=== PATIENT | male | born 1970 | race African-American/Black ===

== ENCOUNTER 2024-01-26 06:03 | Emergency (ER) | payer SELFPAY ==
[2024-01-26 06:18] VITALS: BP 124/86; PULSE 92; RESP 18; TEMP 98; BMI 19.8
[2024-01-26] MEDS ORDERED: FAMOTIDINE 20 MG/50 ML IVPB 20 MG/50 ML MG IVPB ONE (07:45)
[2024-01-26] MEDS ORDERED: MAG HYDROX/AL HYDROX/SIMETH 30 ML UNIT-DOSE CUP ONE (07:45)
[2024-01-26] MEDS: LACTATED RINGERS SOLUTION 1000 ML INFUS.BAG IV ONE (08:13)
[2024-01-26] MEDS: MAG HYDROX/AL HYDROX/SIMETH 30 ML UNIT-DOSE CUP PO ONE (08:13)
[2024-01-26] MEDS: FAMOTIDINE 20 MG/50 ML IVPB 20 MG/50 ML MG IVPB ONE (08:13)
[2024-01-26] MEDS ORDERED: ACETAMINOPHEN INJECTION 100 ML IVPB ONE (08:24)
[2024-01-26] MEDS: ACETAMINOPHEN 1000 MG/100 ML BAG IVPB ONE (08:28)
[2024-01-26 08:32] LABS: BASO % 0.5 % (0-2.0); EOS % 2.6 % (0-4.5); HEMATOCRIT 45.7 % (35.4-49); HEMOGLOBIN 15.5 GM/dL (11.7-16.9); LYMPH % 32.9 % (8-40); MCH 30.1 pg (25.7-33.7); MEAN CELL VOLUME 88.7 fl (80-96); MEAN PLT VOLUME 7.7 fl (7.5-11.1); MONO % 10.6 % (3.8-10.2); NEUT % 53.4 % (42.8-82.8); PLATELET COUNT 307 10^3/uL (134-434); RBC 5.15 M/mm3 (4.00-5.60); RDW 12.5 % (11.9-15.9)
[2024-01-26 08:33] LABS: INR 1.06 (0.83-1.09); PROTHROMBIN TIME (PATIENT) 12.3 SEC (9.7-13.0)
[2024-01-26 08:35] LABS: ACTIVATED PTT 33.1 SECONDS (25.2-36.5)
[2024-01-26 08:38] LABS: POTASSIUM 3.9 mmol/L (3.5-5.1)
[2024-01-26 08:39] LABS: CALCIUM 9.5 mg/dL (8.5-10.1)
[2024-01-26 08:40] LABS: ALBUMIN 3.6 g/dl (3.4-5.0); BLOOD UREA NITROGEN 13.6 mg/dL (7-18)
[2024-01-26 08:45] LABS: BILIRUBIN,TOTAL 0.4 mg/dL (0.2-1)
== END 2024-01-26 11:16 | disposition home or self-care (01) ==
LOC: JER 06:03
PROC: 3E033GC Introduction of Other Therapeutic Substance into Peripheral Vein, Percutaneous Approach (ICD-10-PCS; principal; 2024-01-26)
PROC: 3E033NZ Introduction of Analgesics, Hypnotics, Sedatives into Peripheral Vein, Percutaneous Approach (ICD-10-PCS; 2024-01-26)
DX: R10.13 Epigastric pain (principal); R11.10 Vomiting, unspecified; Z20.822 Contact with and (suspected) exposure to COVID-19
CPT/HCPCS: 0241U-QW; 36415; 71045-TC-FY; 80053; 83690; 83735; 84484; 85025; 85610; 85730; 86850; 86900; 86901; 93005; 93010; 99285-25; J0131